=== PATIENT | male | born 1965 | race Two or more races ===

== ENCOUNTER 2024-10-02 16:30 | Emergency (ER) | payer MEDICAID, SELFPAY ==
[2024-10-02 17:11] VITALS: BP 100/68; PULSE 88; RESP 20; TEMP 37.1; O2SAT 96
--- NOTE | 2024-10-02 17:23 | XR_ITS ---
Examination: PA lateral chest 2 views TECHNIQUE: Upright PA and lateral chest 2 views Exam date and time: October 02, 2024 1821 hours INDICATIONS: Chest pain beginning one week ago. FINDINGS: Normal heart size. Lungs are clear. Mild diffuse thoracic degenerative disc disease IMPRESSION: No active disease
--- NOTE | 2024-10-02 17:23 | EKG_ITS ---
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1965 Requested By: Marcy Medley ([facility]) Robbie Order Number: [id number] Reading MD: Marcy Medley ([facility]) Robbie Measurements Intervals [place] Rate: 95 P: 51 FL: 138 QRS: -50 QRSD: 91 T: 59 QT: 331 QTc: 417 Interpretive Statements SINUS RHYTHM INCOMPLETE RIGHT BUNDLE BRANCH BLOCK [90+ ms QRS DURATION, TERMINAL R IN V1/V2, 40+ ms S IN I/aVL/V4/V5/V6] LEFT ANTERIOR FASCICULAR BLOCK [QRS AXIS <= -45, QR IN I, RS IN II] Compared to ECG 10/11/2023 11:31:34 Incomplete right bundle-branch block now present Left anterior fascicular block now present Left-axis deviation no longer present /store/S0/[id number]/ecg/[id number].pdf
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
[2024-10-02 18:02] LABS: Basophils # (Auto) 0.1 Thou/mm3 (0.0-0.2); Basophils % (Auto) 1 % (0-2.5); Eosinophils # (Auto) 0.1 Thou/mm3 (0.0-0.5); Eosinophils % (Auto) 1 % (0-10); Hemoglobin 15.5 g/dL (13.5-16.0); Immature Granulocytes % (Auto) 1 % (0-0); Immature Granulocytes Auto 0.04 Thou/mm3 (0.00-0.00); Lymphocytes # (Auto) 3.4 Thou/mm3 (1.0-4.8); Lymphocytes % (Auto) 39 % (10-50); Mean Corpuscular Hemoglobin 31.5 pg (25.0-35.0); Mean Corpuscular Volume 87 fL (80-100); Monocytes # (Auto) 0.7 Thou/mm3 (0.0-0.8); Monocytes % (Auto) 8 % (0-12); Neutrophils # (Auto) 4.6 Thou/mm3 (1.8-7.7); Neutrophils % (Auto) 52 % (37-80); Nucleated Red Blood Cell % 0 /100 WBC (0); Platelet Count 312 Thou/mm3 (140-440); RDW Standard Deviation 38.6 fL (35.1-43.9); Red Blood Count 4.92 Miln/mm3 (4.50-5.90); White Blood Count 8.9 Thou/mm3 (3.8-10.6)
[2024-10-02 18:15] LABS: Amphetamine/Methamp Scrn,U Negative (Negative); Barbiturate Screen,Urine Negative (Negative); Benzodiazepines Screen,Urine Negative (Negative); Benzoylecgonine Screen, Ur Negative (Negative); Fentanyl Screen,Urine Negative (Negative); Opiate Screen,Urine Negative (Negative); THC Screen,Urine Negative (Negative)
[2024-10-02 18:19] LABS: INR 0.9 (0.9-1.3); Partial Thromboplastin Time 25.9 Seconds (22.0-36.0); Prothrombin Time 10.4 Seconds (9.0-12.2)
[2024-10-02 18:21] LABS: B-Type Natriuretic Peptide < 20 pg/mL (0-100)
[2024-10-02 18:24] LABS: Alanine Aminotransferase 13 U/L (10-49); Albumin, Serum 4.1 gm/dL (3.5-5.0); Albumin/Globulin Ratio 1.6 (1.2-2.2); Alcohol, Blood Medical 197.3 mg/dL (0-10.0); Alkaline Phosphatase 82 U/L (46-116); Anion Gap 10 (7-16); Aspartate Amino Transferase 22 U/L (0-34); BUN/Creatinine Ratio 13 Ratio (12-20); Bilirubin,Total 0.6 mg/dL (0.3-1.2); Blood Urea Nitrogen 10 mg/dL (9-23); Calcium 8.7 mg/dL (8.3-10.6); Calcium (Corrected) 8.7 mg/dL (8.5-10.1); Carbon Dioxide 24.6 mMol/L (20.0-31.0); Chloride 105 mMol/L (98-107); Creatine Kinase 116 U/L (34-171); Creatinine (Component) 0.8 mg/dL (0.6-1.3); Globulin 2.6 gm/dL (2.3-3.5); Glucose 111 mg/dL (74-106); Lipase 37 U/L (12-53); Osmolality,Calculated 279 (275-295); Potassium 4.1 mMol/L (3.4-5.1); Sodium 140 mMol/L (136-145); Total Protein 6.7 gm/dL (5.7-8.2); Troponin I < 0.002 ng/mL (0.0-0.045); eGFR > 60 See Note
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
[2024-10-02 21:05] VITALS: BP 138/91; PULSE 78; RESP 18; TEMP 36.9; O2SAT 97
== END 2024-10-02 21:25 | disposition home or self-care (01) ==
PROVIDERS: Nurse Practitioner Primary Care; Emergency Provider Emergency Medicine
DX: F10.20 Alcohol dependence, uncomplicated (principal); R07.9 Chest pain, unspecified; I45.10 Unspecified right bundle-branch block; I44.4 Left anterior fascicular block; Y90.6 Blood alcohol level of 120-199 mg/100 ml
CPT/HCPCS: 36415; 71046; 80053; 80307; 80320; 82550; 83690; 83735; 83880; 84484; 85025; 85610; 85730; 93005; 99283; G0480